=== PATIENT | male | born 2000 | race Caucasian/White ===

== ENCOUNTER 2022-06-20 22:12 | Inpatient (IN) ==
[2022-06-20] MEDS ORDERED: Heparin - STEMI 5,000 UNITS/ML 1 ml VIAL IV ONE ×2 (22:33→22:37)
[2022-06-20 22:43] LABS: ABS Lymphocytes 0.6 10^3/ul (1.0-4.8); ABS Monocytes 0.8 10^3/ul (0-0.8); Eosinophil % 0.1 %; Hematocrit 47 % (42-52); Hemoglobin 15.4 g/dL (14.0-18.0); Lymphocyte % 3.7 %; Mean Corpuscular HGB Conc 33 g/dL (31-36); Mean Corpuscular Hemoglobin 29 pg (27-31); Mean Corpuscular Volume 87 fL (80-94); Mean Platelet Volume 7.9 fL (7.4-10.4); Platelet Count 288 10^3/uL (150-450); Red Blood Count 5.35 10^6 /uL (4.18-5.48); Red Cell Distribution Width 14 % (10-15); White Blood Count 15.4 10^3/uL (3.5-10.8)
[2022-06-20 22:49] LABS: INR 1.29 (0.89-1.11)
[2022-06-20 23:17] LABS: Albumin 4.3 g/dL (3.2-5.2); Albumin/Globulin Ratio 1.6 (1-3); C Reactive Protein 242.83 mg/L (<8.01); Calcium 9.5 mg/dL (8.6-10.3); Globulin 2.7 g/dL (2-4); Magnesium 2.2 mg/dL (1.9-2.7); Potassium 4.3 mmol/L (3.5-5.0); Total Bilirubin 0.7 mg/dL (0.2-1.0); eGFR CKD-EPI 107.2 (>60)
[2022-06-20] MEDS ORDERED: Iohexol 350 (CONTRAST) 500 ML MDV IV ONE (23:21)
[2022-06-20 23:53] LABS: High Sensitivity Troponin 1 Hr 7865 pg/mL (<20)
[2022-06-20] MEDS: Heparin DRIP 25,000 UNITS BAG 25,000 UNITS/500 ML BAG IV SCH (23:54)
[2022-06-21 03:19] LABS: High Sensitivity Troponin 3 Hr 7243 pg/mL (<20)
[2022-06-21 06:08] LABS: ABS Lymphocytes 1.1 10^3/ul (1.0-4.8); ABS Monocytes 1.1 10^3/ul (0-0.8); ABS Neutrophils 11.4 10^3/ul (1.5-7.7); Eosinophil % 0.3 %; Hematocrit 42 % (42-52); Hemoglobin 14.7 g/dL (14.0-18.0); Lymphocyte % 8.1 %; Mean Corpuscular HGB Conc 35 g/dL (31-36); Mean Corpuscular Hemoglobin 30 pg (27-31); Mean Corpuscular Volume 86 fL (80-94); Mean Platelet Volume 7.7 fL (7.4-10.4); Platelet Count 281 10^3/uL (150-450); Red Blood Count 4.86 10^6 /uL (4.18-5.48); Red Cell Distribution Width 14 % (10-15); White Blood Count 13.8 10^3/uL (3.5-10.8)
[2022-06-21 06:54] LABS: Anion Gap 11 mmol/L (2-11); Blood Urea Nitrogen 13 mg/dL (6-24); CO2 Carbon Dioxide 24 mmol/L (22-32); Calcium 9.1 mg/dL (8.6-10.3); Chloride 103 mmol/L (101-111); Cholesterol 147 mg/dL; Glucose 102 mg/dL (70-100); HDL Cholesterol 23.2 mg/dL; LDL Cholesterol 98 mg/dL; Magnesium 2.1 mg/dL (1.9-2.7); Potassium 4.4 mmol/L (3.5-5.0); Rheumatoid Factor < 10 IU/mL (<15); Sodium 138 mmol/L (135-145); Triglycerides 130 mg/dL; eGFR CKD-EPI 121.4 (>60)
[2022-06-21] MEDS: Heparin 5000 UNITS/ML 1 mL VIAL IV SCH ×3 (07:37→21:15)
[2022-06-21 11:00] LABS: Urine Benzodiazepine Screen None Detected (None Detect); Urine Cannabinoids Screen None Detected (None Detect); Urine Opiates Screen Presumptive Positive (None Detect)
[2022-06-21 11:03] LABS: Erythrocyte Sed Rate 57 mm/Hr (0-14)
[2022-06-21 12:37] LABS: Amylase 25 U/L (29-103); Indirect Bilirubin 0.4 mg/dL (0.3-1.0); Lipase 13 U/L (11.0-82.0)
[2022-06-21 12:53] LABS: TSH Ultra Thyroid Stim Horm 3.12 mcIU/mL (0.34-5.60)
[2022-06-21 12:55] LABS: Free T4 1.53 ng/dL (0.61-1.12)
[2022-06-21] MEDS: D5W 1/2 NS 1000 ml BAG 1,000 ML IV SCH (14:21)
[2022-06-21 15:08] LABS: Hepatitis B Surface Antigen Nonreactive (Nonreactive)
[2022-06-21 15:29] LABS: Hepatitis A Ab IgM Negative (Negative)
[2022-06-21 15:30] LABS: Hepatitis B Core IgM Nonreactive (Nonreactive)
[2022-06-21 15:42] LABS: Hepatitis C Antibody Negative (Negative)
[2022-06-21] MEDS: Heparin DRIP 25,000 UNITS BAG 25,000 UNITS/500 ML BAG IV SCH (18:06)
[2022-06-21] MEDS ORDERED: Vancomycin per Pharmacy 1 EA NOTE FOLLOW UP PRN (20:50)
[2022-06-21] MEDS ORDERED: ceFAZolin 2 GM in NS PREMIX 2 GM/100 ML BAG IVPB SCH (21:00)
[2022-06-21] MEDS ORDERED: Vancomycin 2,000 MG in NS 0.9% 500 ml BAG 500 ML IVPB ONE (21:30)
[2022-06-21 22:23] LABS: Rapid Strep Molecular Negative (Negative)
[2022-06-22] MEDS: D5W 1/2 NS 1000 ml BAG 1,000 ML IV SCH (02:28)
[2022-06-22] MEDS ORDERED: Morphine 2 MG/ML SYRINGE IV ONE (03:41)
[2022-06-22 03:45] LABS: ABS Basophils 0.1 10^3/ul (0-0.2); ABS Eosinophils 0.1 10^3/ul (0-0.6); ABS Lymphocytes 1.6 10^3/ul (1.0-4.8); ABS Monocytes 1.3 10^3/ul (0-0.8); ABS Neutrophils 9.1 10^3/ul (1.5-7.7); Eosinophil % 0.9 %; Hematocrit 43 % (42-52); Hemoglobin 14.6 g/dL (14.0-18.0); Lymphocyte % 13.1 %; Mean Corpuscular HGB Conc 34 g/dL (31-36); Mean Corpuscular Hemoglobin 30 pg (27-31); Mean Corpuscular Volume 87 fL (80-94); Platelet Count 320 10^3/uL (150-450); Red Blood Count 4.93 10^6 /uL (4.18-5.48); Red Cell Distribution Width 13 % (10-15); White Blood Count 12.2 10^3/uL (3.5-10.8)
[2022-06-22 04:05] LABS: Activated Partial Thrombo Time 40.1 seconds (26.0-38.0); INR 1.27 (0.89-1.11)
[2022-06-22 04:08] LABS: Albumin 3.8 g/dL (3.2-5.2); Albumin/Globulin Ratio 1.7 (1-3); Calcium 8.9 mg/dL (8.6-10.3); Globulin 2.3 g/dL (2-4); Potassium 4.4 mmol/L (3.5-5.0); Total Bilirubin 0.7 mg/dL (0.2-1.0); Total Protein 6.1 g/dL (6.4-8.9); eGFR CKD-EPI 113.9 (>60)
[2022-06-22] MEDS: Heparin 5000 UNITS/ML 1 mL VIAL IV SCH (04:10)
[2022-06-22 04:44] LABS: High Sensitivity Troponin 1 Hr 6869 pg/mL (<20)
[2022-06-22] MEDS: Vancomycin 1,250 MG in NS 0.9% 250 ml 250 ML IVPB SCH ×3 (05:51→22:18)
[2022-06-22] MEDS: Heparin DRIP 25,000 UNITS BAG 25,000 UNITS/500 ML BAG IV SCH (06:13)
[2022-06-22] MEDS ORDERED: Midazolam 5 mg/5 ml VIAL 1 mg/ml 5 ml VIAL (5 mg) ONE (09:11)
[2022-06-22] MEDS ORDERED: VERAPAMIL 2.5 MG/ML 2 ML VIAL ** 5 mg/2 ml ONE (09:11)
[2022-06-22] MEDS ORDERED: Heparin 1,000 UNIT/ML 10 ml (10,000 UNITS) CATHLAB/DIALYSIS ONE (09:11)
[2022-06-22] MEDS ORDERED: fentaNYL 100 mcg/2 ml 50 MCG/ML VIAL ONE ×2 (09:11→11:34)
[2022-06-22] MEDS ORDERED: Heparin 2 UNITS/ML 1000 mls 2,000 ML IV ONE (09:12)
[2022-06-22] MEDS ORDERED: Iohexol 350 (CONTRAST) 100 ML PAK IV ONE ×4 (09:12→10:51)
[2022-06-22] MEDS ORDERED: Lidocaine 1% MPF 5 ML VIAL ONE ×2 (09:12→11:13)
[2022-06-22] MEDS ORDERED: nitroGLYCERIN DRIP 25,000 MCG/250 ML BTL ONE (09:12)
[2022-06-22] MEDS ORDERED: NS 0.9% 1000 ml BAG 1,000 ML IV PRN (12:30)
[2022-06-22 16:00] LABS: C Reactive Protein 132.4 mg/L (<8.01)
[2022-06-22] MEDS ORDERED: Vancomycin Trough Check NOTE FOLLOW UP ONE (21:30)
[2022-06-23 04:46] LABS: ABS Eosinophils 0.2 10^3/ul (0-0.6); ABS Lymphocytes 1.1 10^3/ul (1.0-4.8); ABS Monocytes 0.9 10^3/ul (0-0.8); ABS Neutrophils 7.4 10^3/ul (1.5-7.7); Eosinophil % 1.9 %; Hematocrit 42 % (42-52); Hemoglobin 14.4 g/dL (14.0-18.0); Lymphocyte % 11.5 %; Mean Corpuscular HGB Conc 35 g/dL (31-36); Mean Corpuscular Hemoglobin 30 pg (27-31); Mean Corpuscular Volume 86 fL (80-94); Mean Platelet Volume 7.3 fL (7.4-10.4); Platelet Count 321 10^3/uL (150-450); Red Blood Count 4.81 10^6 /uL (4.18-5.48); Red Cell Distribution Width 14 % (10-15); White Blood Count 9.7 10^3/uL (3.5-10.8)
[2022-06-23 05:05] LABS: Calcium 8.9 mg/dL (8.6-10.3); Potassium 4.5 mmol/L (3.5-5.0); eGFR CKD-EPI 128.6 (>60)
[2022-06-23] MEDS: Vancomycin 1,250 MG in NS 0.9% 250 ml 250 ML IVPB SCH ×3 (05:21→21:33)
[2022-06-23 08:19] LABS: High Sensitivity Troponin 3 Hr 2118 pg/mL (<20)
[2022-06-23] MEDS ORDERED: Naloxone 0.4 mg VIAL 0.4 mg/ml 1 ml VIAL ONE (09:47)
[2022-06-23] MEDS ORDERED: Midazolam 5 mg/5 ml VIAL 1 mg/ml 5 ml VIAL (5 mg) ONE ×2 (09:47→10:44)
[2022-06-23] MEDS ORDERED: fentaNYL 100 mcg/2 ml 50 MCG/ML VIAL ONE ×2 (09:47→10:44)
[2022-06-23] MEDS ORDERED: Flumazenil 0.5 mg/5 ml 0.1 MG/ML 5 ml VIAL ONE (09:47)
[2022-06-23 13:49] LABS: EBV Capsid Ag IgG Ab Positive (Negative); EBV Capsid Ag IgM Ab Negative (Negative); Epstein-Barr Nuclear Antigen Positive (Negative)
[2022-06-24 06:17] LABS: Hematocrit 43 % (42-52); Hemoglobin 14.8 g/dL (14.0-18.0); Mean Corpuscular HGB Conc 35 g/dL (31-36); Mean Corpuscular Hemoglobin 30 pg (27-31); Mean Corpuscular Volume 86 fL (80-94); Mean Platelet Volume 7.4 fL (7.4-10.4); Platelet Count 343 10^3/uL (150-450); Red Blood Count 4.92 10^6 /uL (4.18-5.48); Red Cell Distribution Width 13 % (10-15); White Blood Count 8.5 10^3/uL (3.5-10.8)
[2022-06-24] MEDS: Vancomycin 1,250 MG in NS 0.9% 250 ml 250 ML IVPB SCH ×3 (06:18→17:00)
[2022-06-24 07:03] LABS: Calcium 9.3 mg/dL (8.6-10.3); Potassium 4.5 mmol/L (3.5-5.0); eGFR CKD-EPI 124.6 (>60)
[2022-06-24 08:20] LABS: ABS Basophils 0.1 10^3/ul (0-0.2); ABS Eosinophils 0.2 10^3/ul (0-0.6); ABS Lymphocytes 1.3 10^3/ul (1.0-4.8); ABS Monocytes 0.6 10^3/ul (0-0.8); ABS Neutrophils 6.3 10^3/ul (1.5-7.7); Eosinophil % 2.9 %; Lymphocyte % 15.1 %
[2022-06-24] MEDS ORDERED: Iohexol 350 (CONTRAST) 500 ML MDV IV ONE (11:13)
[2022-06-24] MEDS ORDERED: Vancomycin Trough Check NOTE FOLLOW UP ONE ×2 (13:30)
[2022-06-24 14:21] LABS: Vancomycin Trough 10.3 mcg/mL; eGFR CKD-EPI 126.3 (>60)
[2022-06-24] MEDS: Vancomycin 1,500 MG in NS 0.9% 250 ml 250 ML IVPB SCH (22:19)
[2022-06-25] MEDS: Vancomycin 1,500 MG in NS 0.9% 250 ml 250 ML IVPB SCH ×3 (05:42→22:49)
[2022-06-26] MEDS ORDERED: Vancomycin Trough Check NOTE FOLLOW UP ONE (06:30)
[2022-06-26 07:20] LABS: Vancomycin Trough 11.9 mcg/mL; eGFR CKD-EPI 124.6 (>60)
[2022-06-26] MEDS: Vancomycin 1,500 MG in NS 0.9% 250 ml 250 ML IVPB SCH (08:48)
[2022-06-26 12:02] VITALS: BP 104/54
== END 2022-06-26 13:46 | disposition home or self-care (01) | DRG 287 ==
LOC: ED 22:12 → SUATTDRO 06-21 01:55 → EDHOLD 06-21 01:55 → MEDTELE 06-21 04:15
PROVIDERS: ADMIT Internal Medicine; ATTEND Internal Medicine